=== PATIENT | male | born 1970 | race Caucasian/White ===

== ENCOUNTER → 2024-08-15 | Outpatient (CLI) | payer BC ==
--- NOTE | 2024-08-15 16:40 | US ---
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 No high cholesterol. TECHNIQUE: Grayscale, color Doppler and spectral Doppler evaluation of the bilateral carotid systems and vertebral arteries.Indirect Doppler criteria was utilized. FINDINGS: EXAM MEASUREMENTS: RIGHT: Peak Systolic Velocity (PSV) cm/sec ----- Right CCA: 91.9 ----- Right ICA: 100.0 ----- Right ECA: 96.5 ICA/CCA ratio: 1.1 RIGHT: End Diastole cm/sec ----- Right CCA: 22.6 ----- Right ICA: 16.2 ----- Right ECA: 13.7 LEFT: Peak Systolic Velocity (PSV) cm/sec ----- Left CCA: 94.3 ----- Left ICA: 87.5 ----- Left ECA: 101.7 ICA/CCA ratio: 0.9 LEFT: End Diastole cm/sec ----- Left CCA: 24.5 ----- Left ICA: 24.8 ----- Left ECA: 13.7 VERTEBRALS (direction of flow): Right Vertebral: Antegrade Left Vertebral: Antegrade Rhythm: Normal [employer] INTERLEAFER NOTES: No wall thickening, plaque or elevated velocities seen. IMPRESSION: 1. No suspicious focal stenosis based on velocities Criteria for Assigning % of Stenosis / Diameter reduction (Estimation based on the indirect measurements of the internal carotid artery velocities (ICA PSV). 1. Normal (no stenosis)=ICA PSV < 125 cm/s: ratio < 2.0: ICA EDV<40 cm/s. 2. Less than 50% stenosis=ICA PSV < 125 cm/s: ratio < 2.0: ICA EDV<40 cm/s. 3. 50 to 69% stenosis=ICA PSV of 125 to 230 cm/s: ration 2.0 ? 4.0: ICA EDV 40-100 cm/s. 4. Greater than 70% stenosis to near occlusion= ICA PSV > 230 cm/s: ratio > 4.0: ICA EDV > 100 cm/s. 5. Near occlusion= ICA PSV velocities may be low or undetectable: variable ratio and ICA EDV. 6. Total occlusion=unable to detect flow. [facility], , 08/15/2024 4:38 PM
--- NOTE | 2024-08-16 08:11 | CA ---
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 67 - 155 / 56 - 104 cm??? LV Systolic Volume MOD BP 35.6 cm??? 22 - 58 / 19 - 49 cm??? LV Ejection Fraction MOD BP 58.3 % >= 55 % LV Cardiac Index MOD BP 1375.6 cm???/min???m??? LV Diastolic Volume MOD 4C 74.6 cm??? LV Systolic Volume MOD 4C 36.7 cm??? LV Ejection Fraction MOD 4C 50.8 % LV Cardiac Index MOD 4C 1048.5 cm???/min???m??? LV Diastolic Length 4C 8.0 cm LV Systolic Length 4C 7.8 cm LV Diastolic Volume MOD 2C 99.9 cm??? LV Systolic Volume MOD 2C 32.5 cm??? LV Ejection Fraction MOD 2C 67.5 % LV Cardiac Index MOD 2C 1866.6 cm???/min???m??? LV Diastolic Length 2C 8.2 cm LV Systolic Length 2C 7.1 cm LA Volume 75.9 cm??? 18 - 58 / 22 - 52 cm??? LA Volume Index 28.0 cm???/m??? 16 - 28 cm???/m??? M-MODE Aortic Root Diameter MM 2.9 cm AV Cusp Separation MM 1.6 cm DOPPLER AV Peak Velocity 116.3 cm/s AV Peak Gradient 5.4 mmHg MV Area PHT 3.9 cm??? Mitral E Point Velocity 61.1 cm/s Mitral A Point Velocity 68.0 cm/s Mitral E to A Ratio 0.9 MV Deceleration Time 192.3 ms FINDINGS Left Ventricle Left ventricular ejection fraction is estimated at 55-60 %. Mildly increased left ventricular diastolic diameter. Right Ventricle Right ventricle not well visualized. Unable to estimate the right ventricular systolic pressure. Right Atrium Right atrium not well visualized. Left Atrium Moderately increased left atrial volume. Mildly increased left atrial area. Mitral Valve Structurally normal mitral valve. No mitral stenosis, regurgitation or prolapse. Aortic Valve Aortic valve not well visualized. No aortic valve stenosis or regurgitation. Tricuspid Valve Tricuspid valve not well visualized. Pulmonic Valve Pulmonic valve not well visualized. Pericardium No pericardial or pleural effusion. Aorta Normal size aortic root and proximal ascending aorta. CONCLUSIONS Left ventricular ejection fraction 55-60% Mildly dilated left atrium No mitral regurgitation No pericardial effusion Previewed by: Dr. Rex Tripp DO (Electronically Signed) Final Date: 16 August 2024 08:10
== END | disposition home or self-care (01) ==
LOC: RADUSWWP 15:43
PROVIDERS: ATTEND Family Medicine
DX: H34.239 Retinal artery branch occlusion, unspecified eye
CPT/HCPCS: 93306; 93880

== ENCOUNTER 2025-01-02 15:03 | Emergency (ER) | payer BC ==
--- NOTE | 2025-01-02 16:02 | ED ---
Head Injury HPI - General Chief complaint: Head Injury Stated complaint: Fall-head injury Time Seen by Provider: 01/02/25 15:17 Source: patient, RN notes reviewed Mode of arrival: ambulatory Limitations: no limitations - History of Present Illness Initial comments: This is a 54-year-old male presenting with injury following a slip and fall on ice x 2 days ago. Patient states he was getting out of his car when he fell backwards, striking the back right aspect of his head and injuring his left hip with subsequent headache. Patient denies loss of consciousness, neck pain, vision changes, dizziness, nausea/vomiting. Endorses going to PCP where x-rays were performed before being advised to follow-up with the ER for further imaging. MD Complaint: head injury, head pain, fall Onset/Timin -: days(s) Mechanism of Injury: mechanical fall Location: occipital Loss of Consciousness: no Previous Trauma to this Area: No Place: outdoors Radiation: neck Consistency: constant Associated Symptoms: denies other symptoms - Related Data Allergies/Adverse reactions: Allergies Allergy/AdvReac Type Severity Reaction Status Date / Time No Known Allergies Allergy Verified 01/02/25 15:33 Review of Systems ROS Statement: Those systems with pertinent positive or pertinent negative responses have been documented in the HPI. ROS Other: All systems not noted in ROS Statement are negative. Past Medical History Past Medical History: Hypertension History of Any Multi-Drug Resistant Organisms: None Reported Additional Past Surgical History / Comment(s): 2015 Bariatric surgery Past Psychological History: No Psychological Hx Reported Smoking Status: Never smoker Past Alcohol Use History: None Reported Past Drug Use History: None Reported General Exam Limitations: no limitations General appearance: alert, in no apparent distress Head exam: Present: atraumatic, normocephalic, normal inspection Eye exam: Present: normal appearance, PERRL, EOMI. Absent: scleral icterus, conjunctival injection, periorbital swelling ENT exam: Present: normal exam, mucous membranes moist Neck exam: Present: normal inspection. Absent: tenderness, meningismus, lymphadenopathy Respiratory exam: Present: normal lung sounds bilaterally. Absent: respiratory distress, wheezes, rales, rhonchi, stridor Cardiovascular Exam: Present: regular rate, normal rhythm, normal heart sounds. Absent: systolic murmur, diastolic murmur, rubs, gallop, clicks GI/Abdominal exam: Present: soft, normal bowel sounds. Absent: distended, tenderness, guarding, rebound, rigid Extremities exam: Present: normal inspection, full ROM, normal capillary refill. Absent: tenderness, pedal edema, joint swelling, calf tenderness Back exam: Present: normal inspection, vertebral tenderness (Positive cervical spine tenderness without crepitus or step-off) Neurological exam: Present: alert, oriented X3, CN II-XII intact Psychiatric exam: Present: normal affect, normal mood Skin exam: Present: warm, dry, intact, normal color. Absent: rash Course Vital Signs 01/02/25 01/02/25 15:28 18:16 Temperature 97.8 F 98 F Pulse Rate 85 74 Respiratory 20 18 Rate Blood Pressure 145/99 128/84 O2 Sat by Pulse 96 97 Oximetry Medical Decision Making - Medical Decision Making Was pt. sent in by a medical professional or institution (, PA, ENROLLMENT MANAGEMENT COORDINATOR, urgent care, hospital, or intermediate...) When possible be specific @ -No Did you speak to anyone other than the patient for history (EMS, parent, family, police, friend...)? What history was obtained from this source @ -No Did you review nursing and triage notes (agree or disagree)? Why? @ -I reviewed and agree with nursing and triage notes Were old charts reviewed (outside hosp., previous admission, EMS record, old EKG, old radiological studies, urgent care reports/EKG's, intermediate records)? Report findings @ -No old charts were reviewed Differential Diagnosis (chest pain, altered mental status, abdominal pain women, abdominal pain men, vaginal bleeding, weakness, fever, dyspnea, syncope, headache, dizziness, GI bleed, back pain, seizure, CVA, palpatations, mental health, musculoskeletal)? @ -Differential Musculoskeletal Muscular strain, contusion, ligament sprain, fracture, arthritis, septic arthritis, bursitis, cellulitis, muscle spasm, nerve compression, DVT, arterial occlusion, herpes zoster, electrolyte abnormality, tumor.... This is not meant to be in all inclusive list EKG interpreted by me (3pts min.). @ -Not done X-rays interpreted by me (1pt min.). @ -None done CT interpreted by me (1pt min.). @ -CT of head/cervical spine shows no acute intracranial process or cervical spine fracture/dislocation. Loss of disc height at C6-7 and foraminal narrowing from C5-C7 also noted. U/S interpreted by me (1pt. min.). @ -None done What testing was considered but not performed or refused? (CT, X-rays, U/S, labs)? Why? @ -None What meds were considered but not given or refused? Why? @ -None Did you discuss the management of the patient with other professionals (professionals i.e. Dr., PA, ENROLLMENT MANAGEMENT COORDINATOR, lab, RT, psych nurse, social contact worker, portable canteen operator, teacher, financial services officer, shoe parts caser)? Give summary @ -No Was smoking cessation discussed for >3mins.? @ -No Was critical care preformed (if so, how long)? @ -No Were there social determinants of health that impacted care today? How? (Homelessness, low income, unemployed, alcoholism, drug addiction, transportation, low edu. Level, literacy, decrease access to med. care, intermediate, rehab)? @ -No Was there de-escalation of care discussed even if they declined (Discuss DNR or withdrawal of care, Hospice)? DNR status @ -No What co-morbidities impacted this encounter? (DM, HTN, Smoking, COPD, CAD, Can cer, CVA, ARF, Chemo, Hep., AIDS, mental health diagnosis, sleep apnea, morbid obesity)? @ -None Was patient admitted / discharged? Hospital course, mention meds given and route, prescriptions, significant lab abnormalities, going to OR and other pertinent info. @ -CT of head/cervical spine shows no acute intracranial process or cervical spine fracture/dislocation. Loss of disc height at C6-7 and foraminal narrowing from C5-C7 also noted. Patient advised follow-up with PCP discussed patient with Dr. Austin. Undiagnosed new problem with uncertain prognosis? @ -No Drug Therapy requiring intensive monitoring for toxicity (Heparin, Nitro, Insulin, Cardizem)? @ -No Were any procedures done? @ -No Diagnosis/symptom? @ -Concussion without loss of consciousness, neck sprain Acute, or Chronic, or Acute on Chronic? @ -Acute Uncomplicated (without systemic symptoms) or Complicated (systemic symptoms)? @ -Uncomplicated Side effects of treatment? @ -No Exacerbation, Progression, or Severe Exacerbation? @ -No Poses a threat to life or bodily function? How? (Chest pain, [place], [place], pneumonia, PE, COPD, DKA, ARF, appy, cholecystitis, CVA, Diverticulitis, Homicidal, Suicida l, threat to staff... and all critical care pts) @ -No Disposition Clinical Impression: Concussion without loss of consciousness, Acute sprain of ligament of cervical spine Disposition: HOME SELF-CARE Condition: Good Is patient prescribed a controlled substance at d/c from ED?: No Referrals: Clyde Patricio MD [Primary Care Provider] - 1-2 days Time of Disposition: 18:02
--- NOTE | 2025-01-02 17:50 | CT ---
EXAMINATION TYPE: CT brain blu wo con DATE OF EXAM: 01/02/2025 5:28 PM COMPARISON: None. CLINICAL INDICATION: Male, 54 years old with history of Fall, ongoing headache, Fall, ongoing ANGLIN., ambrose in TECHNIQUE: CT of the brain is performed utilizing 3 mm thick sections through the posterior fossa and 3 mm thick sections through the remaining calvarium. Study is performed within 24 hours of arrival to the hospital. Contrast used: mL of , (none if empty) CT DLP: 1764 mGycm, Automated exposure control for dose reduction was used. FINDINGS: No abnormal hyperdensity is present to suggest an acute intracranial hemorrhage. No mass lesion is evident. No acute infarcts are evident. Ventricles and sulci are appropriate for the patient age. Paranasal sinuses and mastoid air cells within the [id number] are clear. IMPRESSIONS: 1. No acute intracranial process. Follow-up MRI can be performed as clinically indicated. CT cervical spine. COMPARISON: None TECHNIQUE: CT of the cervical spine is performed in the axial plane at 2 mm thick sections. Reconstr ucted images in the coronal, and sagittal plane are reviewed on the computer. FINDINGS: No acute fractures are evident. Vertebral body alignment is normal. Vertebral body heights are preserved. No spinal canal stenosis is evident. There is some left foraminal narrowing from uncovertebral joint hypertrophy at C5-6. There is narrowi ng of disc height C6-7 with endplate changes. Bilateral foraminal narrowing from uncovertebral joint hypertrophy is present. IMPRESSION: 1. Loss of disc height present at C6-7. 2. Uncovertebral joint hypertrophy contributing to bilateral foraminal narrowing C6-7 and left forami nal narrowing C5-6 are 3. No acute osseous abnormality [facility], , 01/02/2025 5:48 PM
[2025-01-02 18:18] VITALS: BP 128/84; PULSE 74; RESP 18; TEMP 98
== END 2025-01-02 18:20 | disposition home or self-care (01) ==
LOC: EC 15:03
DX: S06.0X0A Concussion without loss of consciousness, initial encounter (principal); S13.4XXA Sprain of ligaments of cervical spine, initial encounter; W00.0XXA Fall on same level due to ice and snow, initial encounter
CPT/HCPCS: 70450; 72125; 99283